=== PATIENT | female | born 1955 | race Caucasian/White ===

== ENCOUNTER 2019-07-29 14:55 | Emergency (ER) | payer OTHER ==
[~2019-07-29] VITALS: Ht 153 cm; Wt 60.9 kg
[2019-07-29 15:38] VITALS: BP 132/77
== END 2019-07-29 16:09 | disposition home or self-care (01) ==
LOC: EMS 15:10
DX: R06.02 Shortness of breath (principal); R05 Cough; R11.2 Nausea with vomiting, unspecified; F17.200 Nicotine dependence, unspecified, uncomplicated; Z03.818 Encounter for observation for suspected exposure to other biological agents ruled out
CPT/HCPCS: 99283; U0003